=== PATIENT | female | born 1980 | race African-American/Black ===

== ENCOUNTER 2023-05-06 20:45 | Emergency (ER) | payer SELFPAY ==
[~2023-05-06] VITALS: Ht 172.7 cm; Wt 57.0 kg
[2023-05-06 20:52] VITALS: O2SAT 100
[2023-05-06] MEDS ORDERED: KETOROLAC 30MG/ML VIAL IM ONE (21:45)
[2023-05-06 22:13] VITALS: BP 119/72
[2023-05-06] MEDS ORDERED: NAPR-1176 MT (22:55)
[2023-05-07 00:12] VITALS: PULSE 100; RESP 16; TEMP 98.4
== END 2023-05-07 00:13 | disposition home or self-care (01) ==
LOC: ER 20:45
DX: S11.81XA Laceration without foreign body of other specified part of neck, initial encounter (principal); R07.0 Pain in throat; Z88.0 Allergy status to penicillin; Y08.89XA Assault by other specified means, initial encounter; Y93.89 Activity, other specified; Y92.89 Other specified places as the place of occurrence of the external cause; Y99.8 Other external cause status
CPT/HCPCS: 99283; 71045; 81025; 96372; J1885

== ENCOUNTER 2023-05-07 03:42 | Emergency (ER) | payer MEDICARE ==
[~2023-05-07] VITALS: Ht 172.7 cm; Wt 50.7 kg
[~2023-05-07 03:42] MED LIST: NAPR-1176 MT
[2023-05-07 04:10] VITALS: O2SAT 99
[2023-05-07 09:12] VITALS: BP 124/87; PULSE 86; RESP 16; TEMP 98.6
== END 2023-05-07 15:11 | disposition home or self-care (01) ==
LOC: ER 03:42
DX: R09.89 Other specified symptoms and signs involving the circulatory and respiratory systems (principal); Z88.0 Allergy status to penicillin
CPT/HCPCS: 99281